=== PATIENT | female | born 1965 ===

== ENCOUNTER 2016-09-14 18:47 | Emergency (ER) | payer OTHER ==
[2016-09-14 18:47] VITALS: BMI 29.5
[2016-09-14 19:02] VITALS: BP 122/77; PULSE 85; RESP 20; TEMP 98.5; O2SAT 100
--- NOTE | 2016-09-14 19:26 | ED PDOC ---
HPI: Head Injury Time Seen by Provider: 09/14/16 19:23 Chief Complaint (Nursing): Trauma Chief Complaint (Provider): HEAD INJURY History Per: Patient (51 Y/O FEMALE HERE WITH FACIAL INJURY THAT OCCURRED AFTER TRIP AND FALL TODAY. PATIENT STATES SHE WAS WALKING AND TRIPPED OVER CURB. DENIES ANY LOC. NOTES MODERATE HEADACHE. DENIES ANY DOUBLE VISION BUT NOTES PAIN WITH EYE MOVEMENT.) Past Medical History Reviewed: Historical Data, Nursing Documentation, Vital Signs Vital Signs: Last Vital Signs Temp 98.5 F 09/14/16 18:54 Pulse 85 09/14/16 18:54 Resp 20 09/14/16 18:54 BP 122/77 09/14/16 18:54 Pulse Ox 100 09/14/16 18:54 - Medical History PMH: Hyperthyroidism Denies: Chronic Kidney Disease - Family History Family History: States: Unknown Family Hx - Immunization History Hx Tetanus Toxoid Vaccination: Yes Hx Influenza Vaccination: Yes Hx Pneumococcal Vaccination: Yes - Home Medications Home Medications: Ambulatory Orders Medication Instructions Recorded Naproxen [Naprosyn] 1 tab PO BID PRN #25 tab 09/26/15 B12/Levomefolate Calcium/B-6 1 each PO DAILY #30 tablet 11/18/15 [Xkwag-Uifuqaqwyh-Tosxjygbj Tb] - Allergies Allergies/Adverse Reactions: Allergies Allergy/AdvReac Type Severity Reaction Status Date / Time shrimp Allergy RASH Verified 09/14/16 18:53 Review of Systems ROS Statement: Except As Marked, All Systems Reviewed And Found Negative Neurological: Positive for: Other (HEAD INJURY) Physical Exam - Reviewed Nursing Documentation Reviewed: Yes Vital Signs Reviewed: Yes - Physical Exam Appears: Positive for: Well, Non-toxic, No Acute Distress Head Exam: Positive for: NORMAL INSPECTION, NORMOCEPHALIC. Negative for: ATRAUMATIC (SWELLING OF RIGHT SUPERIOR ORBIT. EOMS INTACT. NO CONJUNCTIVAL INJECTION.) Skin: Positive for: Normal Color, Warm, DRY Eye Exam: Positive for: EOMI, Normal appearance, PERRL ENT: Positive for: Normal ENT Inspection Neck: Positive for: Normal, Painless ROM Cardiovascular/Chest: Positive for: Regular Rate, Rhythm Respiratory: Positive for: CNT, Normal Breath Sounds Gastrointestinal/Abdominal: Positive for: Normal Exam, Bowel Sounds, Soft Back: Positive for: Normal Inspection Extremity: Positive for: Normal ROM Neurologic/Psych: Positive for: Alert, Oriented - ECG O2 Sat by Pulse Oximetry: 100 - Progress ED Course And Treament: ACETAMINOPHEN 975MG X 1 DOSE Disposition - Clinical Impression Clinical Impression: Facial trauma - Patient ED Disposition Is Patient to be Admitted: Transfer of Care - Disposition Disposition: Transfer of Care Disposition Time: 20:12 Condition: FAIR Patient Signed Over To: Pooja Mary Handoff Comments: pending results of head ct/facial ct
--- NOTE | 2016-09-14 20:36 | CT ---
EXAM: CT Head Without Intravenous Contrast CLINICAL HISTORY: 51 years old, female; Injury or trauma; Fall; Initial encounter; Blunt trauma (contusions or hematomas); Injury date: 09-14-2016; Injury details: Patient states: She tripped and fell; Additional info: Head injury TECHNIQUE: Axial computed tomography images of the head/brain without intravenous contrast. This CT exam was performed using one or more of the following dose reduction techniques: automated exposure control, adjustment of the mA and/or kV according to patient size, and/or use of iterative reconstruction technique. Coronal and sagittal reformatted images were created and reviewed. EXAM DATE/TIME: 09/14/2016 7:23 PM COMPARISON: No relevant prior studies available. FINDINGS: BRAIN: No significant acute abnormality identified. No acute hemorrhage seen within the brain. No acute extra-axial fluid collections visualized. No evidence of significant mass effect within the brain. Normal petty-white matter differentiation. VENTRICLES: No evidence of significant hydrocephalus. BONES/JOINTS: No acute fractures are seen. SOFT TISSUES: No acute abnormality of the visualized soft tissues is seen. SINUSES: Visualized paranasal sinuses appear clear. MASTOID AIR CELLS: Postoperative changes involving the right temporal bone. There is evidence of a prior partial right mastoidectomy. Fluid is seen in some of the remaining right mastoid air cells, with no evidence of diffuse right mastoid fluid/mastoiditis. IMPRESSION: - No evidence of acute intracranial injury or fractures. - See above for remaining findings.
--- NOTE | 2016-09-14 20:42 | CT ---
EXAM: CT Orbits Without Intravenous Contrast CLINICAL HISTORY: 51 years old, female; Injury or trauma; Fall; Initial encounter; Blunt trauma (contusions or hematomas); Orbit/periorbital; Right; Injury date: 09-14-2016; Additional info: R/O orbital FX TECHNIQUE: Axial computed tomography images of the orbits without intravenous contrast. This CT exam was performed using one or more of the following dose reduction techniques: automated exposure control, adjustment of the mA and/or kV according to patient size, and/or use of iterative reconstruction technique. Coronal and sagittal reformatted images were created and reviewed. EXAM DATE/TIME: 09/14/2016 7:22 PM COMPARISON: No relevant prior studies available. FINDINGS: LIMITATIONS: Streak artifact from metallic dental hardware. ORBITS: Intraorbital soft tissues appear grossly intact. No evidence of significant orbital emphysema. SINUSES: Visualized paranasal sinuses appear clear. MASTOID AIR CELLS: Post operative changes involving the right temporal bone. There is evidence of a prior partial right mastoidectomy. Fluid is seen in some of the remaining aerated right mastoid air cells, with no evidence of diffuse right mastoid fluid/mastoiditis. BONES/JOINTS: No acute fractures are seen. No evidence of acute dislocation. SOFT TISSUES: Right rosanne-orbital soft tissue swelling. IMPRESSION: - No acute facial bone fractures identified. - See above for remaining findings.
--- NOTE | 2016-09-14 20:47 | ED PDOC ---
- ECG O2 Sat by Pulse Oximetry: 100 - Progress ED Course And Treament: case endorsed to communications writer from Len CASTILLO pending CT's. EXAM: CT Head Without Intravenous Contrast CLINICAL HISTORY: 51 years old, female; Injury or trauma; Fall; Initial encounter; Blunt trauma ( contusions or hematomas); Injury date: 09-14-2016; Injury details: Patient states: She tripped and fell; Additional info: Head injury TECHNIQUE: Axial computed tomography images of the head/brain without intravenous contrast. This CT exam was performed using one or more of the following dose reduction techniques: automated exposure control, adjustment of the mA and/or kV according to patient size, and/or use of iterative reconstruction technique. Coronal and sagittal reformatted images were created and reviewed. EXAM DATE/TIME: 09/14/2016 7:23 PM COMPARISON: No relevant prior studies available. FINDINGS: BRAIN: No significant acute abnormality identified. No acute hemorrhage seen within the brain. No acute extra-axial fluid collections visualized. No evidence of significant mass effect within the brain. Normal petty-white matter differentiation. VENTRICLES: No evidence of significant hydrocephalus. BONES/JOINTS: No acute fractures are seen. SOFT TISSUES: No acute abnormality of the visualized soft tissues is seen. SINUSES: Visualized paranasal sinuses appear clear. MASTOID AIR CELLS: Postoperative changes involving the right temporal bone. There is evidence of a prior partial right mastoidectomy. Fluid is seen in some of the remaining right mastoid air cells, with no evidence of diffuse right mastoid fluid/mastoiditis. IMPRESSION: - No evidence of acute intracranial injury or fractures. - See above for remaining findings. EXAM: CT Orbits Without Intravenous Contrast CLINICAL HISTORY: 51 years old, female; Injury or trauma; Fall; Initial encounter; Blunt trauma ( contusions or hematomas); Orbit/periorbital; Right; Injury date: 09-14-2016; Additional info: R/ O orbital FX TECHNIQUE: Axial computed tomography images of the orbits without intravenous contrast. This CT exam was performed using one or more of the following dose reduction techniques: automated exposure control, adjustment of the mA and/or kV according to patient size, and/or use of iterative reconstruction technique. Coronal and sagittal reformatted images were created and reviewed. EXAM DATE/TIME: 09/14/2016 7:22 PM COMPARISON: No relevant prior studies available. FINDINGS: LIMITATIONS: Streak artifact from metallic dental hardware. ORBITS: Intraorbital soft tissues appear grossly intact. No evidence of significant orbital emphysema. SINUSES: Visualized paranasal sinuses appear clear. MASTOID AIR CELLS: Post operative changes involving the right temporal bone. There is evidence of a prior partial right mastoidectomy. Fluid is seen in some of the remaining aerated right mastoid air cells, with no evidence of diffuse right mastoid fluid/mastoiditis. BONES/JOINTS: No acute fractures are seen. No evidence of acute dislocation. SOFT TISSUES: Right rosanne-orbital soft tissue swelling. IMPRESSION: - No acute facial bone fractures identified. - See above for remaining findings. Patient educated on findings, discharged with rx naproxen. Advised ice, follow up PMD 2-3 days. Return to ED for worsening/concerning symptoms. Disposition - Clinical Impression Clinical Impression: Facial trauma - POA Present On Arrival: None - Disposition Disposition: Routine/Home Disposition Time: 20:47 Condition: STABLE Prescriptions: Naproxen [Naprosyn] 500 mg PO Q12 PRN #20 tablet PRN Reason: Pain, Moderate (4-7) Instructions: Hematoma (ED)
== END 2016-09-14 21:10 | disposition home or self-care (01) ==
LOC: H.ER 18:47
DX: S09.93XA Unspecified injury of face, initial encounter (principal); W19.XXXA Unspecified fall, initial encounter; Y92.89 Other specified places as the place of occurrence of the external cause